=== PATIENT | male | born 1945 | race Caucasian/White ===

== ENCOUNTER → 2016-10-11 | Outpatient (CLI) | payer BC, MEDICARE ==
--- NOTE | 2016-10-11 10:04 | CTL ---
EXAMINATION TYPE: CT Low Dose Lung DATE OF EXAM ORDERED: 10/11/2016 9:43 AM COMPARISON: None HISTORY: 71-year-old male with lung cancer screening, personal history of tobacco use. CT DLP: 50.[address] CTDI: 1.4 mGy Automated exposure control for dose reduction was used. SCREENING VISIT: Baseline. COMPARISON: None TECHNIQUE: Low dose computed tomography scan was performed through the chest at 1 mm thick sections a nd reconstructed images in the coronal/sagittal plane at [address] DIAGNOSTIC QUALITY: Satisfactory FINDINGS: Heart is normal size without pericardial effusion. Coronary vessel calcifications are present and are a marker for coronary artery disease. There is ectasia of the ascending aorta at 3.7 cm with conventional arch vessel branching anatomy. Ec rosemary of the upper descending thoracic aorta at 3.2 cm. No thoracic lymphadenopathy by CT size criteria. There are calcified subcarinal and right hilar lymph nodes compatible with prior granulomatous disease. There is mild diffuse bronchial wall thickening and moderate overall centrilobular emphysema. Some strandy atelectasis or scarring is seen along the anterior midlung zone and right base. No suspicious pulmonary nodules are seen. Visualized upper abdomen shows a single calcified granuloma in the spleen but otherwise no gross abno rmality. Bones: Multilevel endplate spondylosis within the thoracic spine. No osseous destructive process. Sca ttered Schmorl's nodes are present. IMPRESSION: 1. LungRADS 1 - negative; no nodule seen. 2. COPD with moderate centrilobular emphysema. 3. Prior granulomatous disease. 4. Ectatic thoracic aorta (ascending aorta 3.7 cm). RECOMMENDATION: 1. Continue annual screening with low-dose CT in 12 months. 2. Smoking cessation.
== END | disposition home or self-care (01) ==
LOC: RADCTMAIN 09:15
PROVIDERS: ATTEND Family Medicine
DX: Z12.2 Encounter for screening for malignant neoplasm of respiratory organs (principal); J44.9 Chronic obstructive pulmonary disease, unspecified; I77.810 Thoracic aortic ectasia; Z87.891 Personal history of nicotine dependence

== ENCOUNTER → 2017-05-28 | Outpatient (CLI) | payer MEDICARE ==
[2017-05-28 09:24] LABS: ALT 33 U/L (21-72); AST 35 U/L (17-59); Cholesterol 262 mg/dL (<200); HDL Cholesterol 71 mg/dL (40-60)
== END | disposition home or self-care (01) ==
LOC: LABWHC1 08:53
PROVIDERS: ATTEND Internal Medicine Cardiovascular Disease
DX: E78.2 Mixed hyperlipidemia (principal)
CPT/HCPCS: 36415; 80061; 84450; 84460

== ENCOUNTER 2019-03-19 10:59 | Inpatient (IN) | payer MEDICARE ==
[2019-03-19] MEDS ORDERED: SODIUM CHLORIDE 0.9% 1,000 ML IV ONE (11:30)
[2019-03-19] MEDS ORDERED: MIDAZOLAM (PF) 2 MG/2 ML VIAL IV ONE ×2 (12:19→12:26)
[2019-03-19] MEDS ORDERED: LIDOCAINE 1% INJ 10MG/ML (20 ML MDV) SQ ONE (12:20)
[2019-03-19] MEDS: VERAPAMIL SYRINGE (5 MG/10 ML) INTRAARTER ONE ×2 (12:22→12:48)
[2019-03-19] MEDS ORDERED: BIVALIRUDIN BOLUS 250 MG/50 ML IV ONE (12:35)
[2019-03-19] MEDS ORDERED: BIVALIRUDIN 250 MG in SODIUM CHLORIDE 0.9% 50 ML IV ONE (12:36)
[2019-03-19] MEDS ORDERED: CLOPIDOGREL 75 MG TAB PO ONE (12:40)
[2019-03-19] MEDS ORDERED: NITROGLYCERIN 1000MCG/10ML SYRINGE INTRACORON ONE (12:44)
[2019-03-19] MEDS ORDERED: IOPAMIDOL-370 125ML BTL INJ ONE (12:45)
[2019-03-19] MEDS ORDERED: NITROGLYCERIN SL TABS 0.4 MG TAB SUBLINGUAL PRN (12:53)
[2019-03-19] MEDS ORDERED: ZOLPIDEM 5 MG TAB PO PRN (12:53)
[2019-03-19] MEDS ORDERED: RX INFO: IV CONTRAST WAS GIVEN 1 EACH MISC MISCELLANE PRN (12:53)
[2019-03-19] MEDS ORDERED: ATROPINE SULFATE 0.1 MG/ML 10ML SYRINGE IV PRN (12:53)
[2019-03-19] MEDS ORDERED: MAG HYDROX/AL HYDROX/SIMETH 30 ML CUP PO PRN (12:53)
[2019-03-19] MEDS ORDERED: SODIUM CHLORIDE 0.9% 1,000 ML IV SCH (13:00)
--- NOTE | 2019-03-19 15:33 | LTR ---
DATE OF SERVICE: March 19, 2019 RE: MitziDav shepard Dear Dr. Vaz; Mr. Dav Doyle presented to the emergency room at [facility] with chest discomfort and ischemic ST changes on the EKG. Because of that, I did advise a heart catheterization. He underwent heart catheterization which revealed critical disease involving the mid LAD where I did perform successful stenting of the mid LAD with good angiographic results and without any complication. Thank you for allowing us to participate in his care and please do not hesitate to call if you have any question or concern. Sincerely, Niko Cisneros MD MMTRISTENL / KATHIAN: [id number] /
--- NOTE | 2019-03-19 15:33 | CC ---
CARDIAC CATHETERIZATION REPORT DATE OF SERVICE: 03/19/2019 PERFORMING PHYSICIAN: Niko Cisneros MD Numerical Control Machine Machinist. PROCEDURE PERFORMED: 1. Selective right and left coronary angiogram. 2. Left heart catheterization. 3. Successful stenting of the mid LAD using 3.5 x 18 mm Xience SARITHA with an excellent angiographic result and reduction of stenosis from 99% to 0%. INDICATION: This is a pleasant 74-year-old gentleman with history of hypertension and dyslipidemia and prior history of smoking, who presented to the emergency room at [facility] with chest discomfort with ischemic ST changes. Because of that, a heart catheterization was advised. APPROACH: Right radial artery. COMPLICATION: None LEVEL OF SEDATION: Moderate with sedation length of 31 minutes. PROCEDURE DESCRIPTION: After obtaining an informed consent, the patient was brought to the cardiac laboratory cureman. The right radial artery was cannulated using micropuncture technique and a micropuncture wire passed easily, then I placed a 6-Italian sheath in the right radial artery. After that I gave the patient 2 mg of verapamil IA. I did selective right coronary angiogram using JR4 catheter and selective left coronary angiogram using an XP35 LAD guide. After that, I did intervene on the LAD, please see a separate paragraph for that. I did after that left heart catheterization using 6-Italian pigtail catheter. The procedure was completed without any complication. SELECTIVE CORONARY ANGIOGRAM: 1. The right coronary artery is chronically occluded in the midportion and fills by collaterals from the left coronary system. 2. Left main is angiographically normal, it bifurcates into left circumflex and left anterior descending artery. 3. The left circumflex is a large caliber vessel and is a nondominant vessel. The proximal circumflex appeared to have mild disease only. It gives rise into a large OM branch which has mild disease in the proximal portion, but the rest of the OM branch appeared to be angiographically normal. As a matter of fact, the OM 1 gives upper branch, which seems to be normal as well. The circumflex continued after that as a small-caliber vessel in the AV groove. 4. The LAD, the proximal LAD appeared to have mild disease only. The mid LAD appeared to have a lesion in the range of 99.9%, seems to be a hazy with possible thrombus formation. This is by the bifurcation of a medium-sized diagonal branch which seems to be normal. The LAD distally appeared to be angiographically normal. HEMODYNAMICS: The left ventricular end-diastolic pressure was about 12 mmHg without significant gradient across the aortic valve. PCI OF THE LAD: Anticoagulation was initiated using Angiomax. Subsequently I did engage. I did use the same XB3.5 LAD guide. I wired the LAD using a run-through wire. I did balloon angioplasty using 3.5 x 12 mm balloon before I deployed 3.5 x 18 mm Xience SARITHA where the stent was positioned under fluoroscopy guidance and deployed under its nominal pressure with the following angiogram showing good angiographic results with reduction of stenosis from 99% to 0%. CONCLUSION: 1. Chest discomfort associated with ischemic ST changes, concerning for severe underlying coronary artery disease. 2. Chronic total occlusion of the right coronary artery which fills by collaterals from the left coronary system. 3. Critical disease involving the mid left anterior descending artery with a plaque rupture and thrombus formation. 4. Successful stenting of the mid left anterior descending artery using 3.5 x 18 mm Xience SARITHA with an excellent angiographic result and reduction of stenosis from 99% to 0%. POSTPROCEDURE MANAGEMENT: 1. Dual anti-platelet therapy. 2. Risk factors modifications. 3. Follow up with the patient. MMODL / IJN: [id number] /
[2019-03-19] MEDS: ATORVASTATIN 80 MG TAB PO SCH (21:50)
[2019-03-19] MEDS: METOPROLOL TARTRATE 25 MG TAB PO SCH (21:50)
[2019-03-20 07:33] LABS: Basophils % (A) 1 %; Eosinophils # (A) 0.1 k/uL (0-0.7); Eosinophils % (A) 2 %; HCT 46.5 % (39.0-53.0); HGB 14.7 gm/dL (13.0-17.5); Lymphocytes % (A) 34 %; MCH 28.4 pg (25.0-35.0); MCHC 31.6 g/dL (31.0-37.0); MCV 89.9 fL (80.0-100.0); Mean Platelet Volume 7.8; Monocytes # (A) 0.4 k/uL (0-1.0); Monocytes % (A) 8 %; Neutrophils # (A) 3.2 k/uL (1.3-7.7); Neutrophils % (A) 54 %; Platelet Count 250 k/uL (150-450); RBC 5.17 m/uL (4.30-5.90); RDW 13.3 % (11.5-15.5); WBC 5.8 k/uL (3.8-10.6)
[2019-03-20 07:38] LABS: African American GFR (CKD) >90 (>60 ml/min/1.73 sqM); Anion Gap 7 mmol/L; Blood Urea Nitrogen 15 mg/dL (9-20); Carbon Dioxide 23 mmol/L (22-30); Chloride 108 mmol/L (98-107); Glucose 98 mg/dL (74-99); Potassium 4.7 mmol/L (3.5-5.1); Sodium 138 mmol/L (137-145)
[2019-03-20] MEDS: CLOPIDOGREL 75 MG TAB PO SCH (08:58)
[2019-03-20] MEDS: ASPIRIN 325 MG TAB PO SCH (08:58)
[2019-03-20] MEDS: LISINOPRIL 2.5 MG TAB PO SCH (08:58)
[2019-03-20] MEDS: METOPROLOL TARTRATE 25 MG TAB PO SCH ×2 (08:58→20:23)
[2019-03-20 11:57] VITALS: BMI 26.0
--- NOTE | 2019-03-20 12:34 | XR ---
EXAMINATION TYPE: XR chest 1V DATE OF EXAM: 03/20/2019 COMPARISON: NONE HISTORY: Congestive heart failure TECHNIQUE: Single frontal view of the chest is obtained. FINDINGS: There is no focal air space opacity, pleural effusion, or pneumothorax seen. The cardiac silhouette size is within normal limits. The osseous structures are intact. IMPRESSION: No acute cardiopulmonary process. No current sequela of congestive heart failure radiogr aphically.
--- NOTE | 2019-03-20 15:40 | P.HPIM ---
History of Present Illness 74-year-old present gentleman presented to the care and ER with compensative chest pain typical chest pain along with highly elevated troponin and the inverted T waves consistent with non-ST elevation microinfarction patient underwent cardiac catheterization here underwent successful stenting of LAD patient is feeling. No overnight events, patient was started on dual antiplatelet therapy statin and a beta ar. Echocardiogram is pending Review of Systems REVIEW OF SYSTEMS: CONSTITUTIONAL: No fever, no malaise, no fatigue. HEENT: No recent visual problems or hearing problems. Denied any sore throat. CARDIOVASCULAR: No chest pain, orthopnea, PND, no palpitations, no syncope. PULMONARY: No shortness of breath, no cough, no hemoptysis. GASTROINTESTINAL: No diarrhea, no nausea, no vomiting, no abdominal pain. NEUROLOGICAL: No headaches, no weakness, no numbness. HEMATOLOGICAL: Denies any bleeding or petechiae. GENITOURINARY: Denies any burning micturition, frequency, or urgency. MUSCULOSKELETAL/RHEUMATOLOGICAL: Denies any joint pain, swelling, or any muscle pain. ENDOCRINE: Denies any polyuria or polydipsia. The rest of the 14-point review of systems is negative. Past Medical History Past Medical History: COPD History of Any Multi-Drug Resistant Organisms: None Reported Past Surgical History: No Surgical Hx Reported Past Anesthesia/Blood Transfusion Reactions: No Reported Reaction Past Psychological History: No Psychological Hx Reported Smoking Status: Former smoker Past Drug Use History: None Reported - Past Family History Mother Family Medical History: AICD/Pacemaker Father Family Medical History: AICD/Pacemaker Medications and Allergies Home Medications Medication Instructions Recorded Confirmed Type Aspirin 325 mg PO HS 03/19/19 03/19/19 History Atorvastatin [Lipitor] 40 mg PO HS 03/19/19 03/19/19 History Mometasone Furoate [Asmanex] 1 puff INHALATION RT-DAILY 03/19/19 03/19/19 History Tiotropium Br/Olodaterol HCl 1 puff INHALATION RT-BID 03/19/19 03/19/19 History [Stiolto Respimat Inhal [place]] Allergies Allergy/AdvReac Type Severity Reaction Status Date / Time No Known Allergies Allergy Verified 03/19/19 19:27 Physical Exam Vitals: Vital Signs Temp Pulse Pulse Resp BP Pulse Ox 03/20/19 08:00 97.3 F L 64 16 121/78 92 L 03/20/19 04:10 98.0 F 61 15 112/77 94 L 03/20/19 00:00 98.1 F 62 16 122/77 95 03/19/19 19:45 98.3 F 72 18 134/81 95 03/19/19 17:56 79 16 136/80 97 03/19/19 15:51 80 16 152/80 98 Intake and Output 03/20/19 03/20/19 03/20/19 06:59 14:59 22:59 Intake Total 600 Balance 600 Intake: Oral 600 Other: # Voids 2 2 Weight 84.8 kg 84.8 kg PHYSICAL EXAMINATION: GENERAL: The patient is alert and oriented x3, not in any acute distress. Well developed, well nourished. HEENT: Pupils are round and equally reacting to light. EOMI. No scleral icterus. No conjunctival pallor. Normocephalic, atraumatic. No pharyngeal erythema. No thyromegaly. CARDIOVASCULAR: S1 and S2 present. No murmurs, rubs, or gallops. PULMONARY: Chest is clear to auscultation, no wheezing or crackles. ABDOMEN: Soft, nontender, nondistended, normoactive bowel sounds. No palpable organomegaly. MUSCULOSKELETAL: No joint swelling or deformity. EXTREMITIES: No cyanosis, clubbing, or pedal edema. NEUROLOGICAL: Gross neurological examination did not reveal any focal deficits. SKIN: No rashes. Results CBC & Chem 7: 03/20/19 06:36 03/20/19 06:36 Labs: Abnormal Lab Results - Last 24 Hours (Table) 03/20/19 Range/Units 06:36 Chloride 108 H (98-107) mmol/L Thrombosis Risk Factor Assmnt - Choose All That Apply Any of the Below Risk Factors Present?: Yes Each Factor Represents 1 point: Obesity (BMI >25) Other Risk Factors: Yes Each Risk Factor Represents 2 Points: Age 61-74 years, Arthroscopic surgery Thrombosis Risk Factor Assessment Total Risk Factor Score: 5 Thrombosis Risk Factor Assessment Level: High Risk Assessment and Plan Plan: -Non-ST elevation myocardial infarction: Status post cardiac catheterization and stenting of mid LAD continue Dilantin antiplatelet therapy beta ar awaiting echocardiogram. Continue with statin -Hyperlipidemia -COPD without any significant exacerbation history of smoking which she quit one and half years ago DVT prophylaxis: Early ambulation
--- NOTE | 2019-03-20 17:06 | P.PN ---
Subjective Progress Note Date: 03/20/19 This is a 74-year-old gentleman who was admitted through emergency room of [facility] with symptoms of chest pain and non-ST elevation myocardial infarction. Patient had stent placement of the LAD by Dr. Tillman. Patient has been doing well. Denies any chest pain or shortness of breath. His blood work is stable. Lungs are clear. Heart is regular. Patient is going to have an echocardiogram. His puncture site in the distal seemed to be healing well Objective - Vital Signs Vital signs: Vital Signs Temp 97.3 F L 03/20/19 08:00 Pulse 57 L 03/20/19 12:00 Resp 16 03/20/19 12:00 BP 131/78 03/20/19 12:00 Pulse Ox 95 03/20/19 12:00 Intake & Output 03/19/19 03/20/19 03/20/19 18:59 06:59 18:59 Intake Total 930 600 Balance 930 600 Weight 85.729 kg 84.8 kg 84.8 kg Intake: IV 690 Sodium Chloride 0.9% 1, 440 000 ml @ 75 mls/hr IV . [id number] [facility] Rx#:[id number] Oral 240 600 Other: Voiding Method Toilet # Voids 1 2 2 - Exam GENERAL EXAM: Patient is alert and oriented and doesn't appear to be in any acute distress HEENT: Normocephalic. Normal reaction of pupils, equal size, normal range of extraocular motion. No erythema or exudates in the throat. NECK: No masses, no nuchal rigidity. CHEST: No chest wall deformity. LUNGS: Show diminished breath sounds both sides with some expiratory rhonchi HEART: S1 and S2 normal with no audible mumurs or gallops. Regular rhythm, femorals equal on both sides.. ABDOMEN: No hepatosplenomegaly, normal bowel sounds, no guarding or rigidity. SKIN: No rashes CENTRAL NERVOUS SYSTEM: No focal deficits. EXTREMITIES: No cyanosis, clubbing or edema. - Labs CBC & Chem 7: 03/20/19 06:36 03/20/19 06:36 Labs: Abnormal Lab Results - Last 24 Hours (Table) 03/20/19 Range/Units 06:36 Chloride 108 H (98-107) mmol/L Assessment and Plan (1) COPD (chronic obstructive pulmonary disease) Current Visit: Yes Status: Acute Code(s): J44.9 - CHRONIC OBSTRUCTIVE PULMONARY DISEASE, UNSPECIFIED SNOMED Code(s): 17681945 (2) NSTEMI (non-ST elevated myocardial infarction) Current Visit: Yes Status: Acute Code(s): I21.4 - NON-ST ELEVATION (NSTEMI) MYOCARDIAL INFARCTION SNOMED Code(s): 12795896 Plan: We will get an echocardiogram done. Increase activity. Possible discharge in a.m.
--- NOTE | 2019-03-20 18:20 | ECHOF ---
Referral Reason:nstemi MEASUREMENTS -------- HEIGHT: 180.3 cm WEIGHT: 88.5 kg BP: 130/69 RVIDd: 3.0 cm (< 3.3) IVSd: 1.4 cm (0.6 - 1.1) LVIDd: 3.5 cm (3.9 - 5.3) LVPWd: 1.6 cm (0.6 - 1.1) IVSs: 2.1 cm LVIDs: 2.0 cm LVPWs: 2.0 cm LAESV Index (A-L): 16.16 ml/m Ao Diam: 2.8 cm (2.0 - 3.7) AV Cusp: 1.3 cm (1.5 - 2.6) LA Diam: 3.3 cm (2.7 - 3.8) MV EXCURSION: 16.074 mm (> 18.000) MV EF SLOPE: 82 mm/s (70 - 150) EPSS: 0.6 cm MV E Mike: 0.67 m/s MV DecT: 183 ms MV A Mike: 0.94 m/s MV E/A Ratio: 0.72 RAP: 5.00 mmHg RVSP: 15.50 mmHg FINDINGS -------- Sinus rhythm. This was a technically difficult study with suboptimal parasternal views. COPD The left ventricular size is normal. There is moderate concentric left ventricular hypertrophy. O verall left ventricular systolic function is mildly impaired with, an EF between 45 - 50 %. Mid ant erior LV wall motion is hypokinetic. Apical anterior LV wall motion is hypokinetic. The right ventricle is normal in size. Normal LA size by volume 22+/-6 ml/m2. The right atrial size is normal. Interatrial and interventricular septum intact. The aortic valve is trileaflet, and appears structurally normal. No aortic stenosis or regurgitation. The mitral valve is normal. There is trace mitral regurgitation. Mild tricuspid regurgitation present. There is no evidence of pulmonary hypertension. The right v entricular systolic pressure, as measured by Doppler, is 15.50mmHg. There is no pulmonic regurgitation present. The aortic root size is normal. Normal inferior vena cava with normal inspiratory collapse consistent with estimated right atrial pre ssure of 5 mmHg. Echo free space represents a pericardial fat pad. CONCLUSIONS -------- 1. Sinus rhythm. 2. This was a technically difficult study with suboptimal parasternal views. 3. COPD 4. The left ventricular size is normal. 5. There is moderate concentric left ventricular hypertrophy. 6. Overall left ventricular systolic function is mildly impaired with, an EF between 45 - 50 %. 7. Mid anterior LV wall motion is hypokinetic. 8. Apical anterior LV wall motion is hypokinetic. 9. Normal LA size by volume 22+/-6 ml/m2. 10. The aortic valve is trileaflet, and appears structurally normal. No aortic stenosis or regurgitat ion. 11. There is trace mitral regurgitation. 12. Mild tricuspid regurgitation present. 13. There is no evidence of pulmonary hypertension. 14. There is no pulmonic regurgitation present. 15. Echo free space represents a pericardial fat pad. [employer]PORT OPERATIONS DUTY MANAGER: Vibha Holguin RDCS
[2019-03-20] MEDS: FORMOTEROL FUMARATE 20 MCG/2 ML NEBU INHALATION SCH (20:13)
[2019-03-20] MEDS: FLUTICASONE 110 MCG INHALER INHALATION SCH (20:13)
[2019-03-20] MEDS: IPRATROPIUM 0.5 MG/2.5 ML NEBU INHALATION SCH ×2 (20:13→20:22)
[2019-03-20] MEDS: ATORVASTATIN 80 MG TAB PO SCH (20:23)
[2019-03-20 23:11] VITALS: RESP 18
[2019-03-21 06:55] LABS: HCT 44.9 % (39.0-53.0); HGB 14.3 gm/dL (13.0-17.5); MCH 27.8 pg (25.0-35.0); MCHC 31.8 g/dL (31.0-37.0); MCV 87.5 fL (80.0-100.0); Mean Platelet Volume 8.5; Platelet Count 222 k/uL (150-450); RBC 5.13 m/uL (4.30-5.90); RDW 14.5 % (11.5-15.5); WBC 6.6 k/uL (3.8-10.6)
[2019-03-21] MEDS: FLUTICASONE 110 MCG INHALER INHALATION SCH (07:56)
[2019-03-21] MEDS: FORMOTEROL FUMARATE 20 MCG/2 ML NEBU INHALATION SCH (07:56)
[2019-03-21] MEDS: IPRATROPIUM 0.5 MG/2.5 ML NEBU INHALATION SCH ×4 (07:56→15:46)
[2019-03-21] MEDS: METOPROLOL TARTRATE 25 MG TAB PO SCH (09:11)
[2019-03-21] MEDS: ASPIRIN 325 MG TAB PO SCH (09:11)
[2019-03-21] MEDS: CLOPIDOGREL 75 MG TAB PO SCH (09:11)
[2019-03-21] MEDS: LISINOPRIL 2.5 MG TAB PO SCH (09:12)
[2019-03-21 13:02] VITALS: BP 110/67; PULSE 60; TEMP 99
--- NOTE | 2019-03-21 16:11 | P.DS ---
Providers Date of admission: 03/19/19 11:25 Attending physician: Niko Cisneros Consults: 03/19/19 12:53 Consult Physician Routine Consulting Provider: [facility] Consult Reason/Comments: Post Interventional patient Do you want consulting provider notified?: Already Contacted Placement Type Exists?: Yes 03/20/19 08:33 Consult Physician Routine Consulting Provider: Enmanuel Pierce Consult Reason/Comments: Medical management- pt transferred from [facility] for heart cath Do you want consulting provider notified?: Yes Primary care physician: Stated None Hospital Course: 74-year-old present gentleman presented to the care and ER with compensative chest pain typical chest pain along with highly elevated troponin and the inverted T waves consistent with non-ST elevation microinfarction patient underwent cardiac catheterization here underwent successful stenting of LAD patient is feeling. No overnight events, patient was started on dual antiplatelet therapy statin and a beta ar. Echocardiogram is pending 03/21/2019 Patient echocardiogram showed ejection fraction of 40 with 50% patient is not in heart failure exacerbation at this time patient will be discharged on lisinopril, beta ar Dual antiplatelet therapy and a statin. Patient will follow with PCP and cardiology as an outpatient PHYSICAL EXAMINATION: GENERAL: The patient is alert and oriented x3, not in any acute distress. Well developed, well nourished. HEENT: Pupils are round and equally reacting to light. EOMI. No scleral icterus. No conjunctival pallor. Normocephalic, atraumatic. No pharyngeal erythema. No thyromegaly. CARDIOVASCULAR: S1 and S2 present. No murmurs, rubs, or gallops. PULMONARY: Chest is clear to auscultation, no wheezing or crackles. ABDOMEN: Soft, nontender, nondistended, normoactive bowel sounds. No palpable organomegaly. MUSCULOSKELETAL: No joint swelling or deformity. EXTREMITIES: No cyanosis, clubbing, or pedal edema. NEUROLOGICAL: Gross neurological examination did not reveal any focal deficits. SKIN: No rashes. Please refer to my dictation of H&P for further details of hospitalization course and other medical problems that were addressed here. Plan - Discharge Summary New Discharge Prescriptions: New Atorvastatin [Lipitor] 80 mg PO HS #30 tab Metoprolol Tartrate [Lopressor] 12.5 mg PO BID #60 tab Clopidogrel [Plavix] 75 mg PO DAILY #30 tab Lisinopril [Zestril] 2.5 mg PO DAILY #30 tab Continue Tiotropium Br/Olodaterol HCl [Stiolto Respimat Inhal [place]] 1 puff INHALATION RT-BID Mometasone Furoate [Asmanex] 1 puff INHALATION RT-DAILY Aspirin 325 mg PO HS Discontinued Atorvastatin [Lipitor] 40 mg PO HS Discharge Medication List Aspirin 325 mg PO HS 03/19/19 [History] Mometasone Furoate [Asmanex] 1 puff INHALATION RT-DAILY 03/19/19 [History] Tiotropium Br/Olodaterol HCl [Stiolto Respimat Inhal [place]] 1 puff INHALATION RT-BID 03/19/19 [History] Atorvastatin [Lipitor] 80 mg PO HS #30 tab 03/21/19 [Rx] Clopidogrel [Plavix] 75 mg PO DAILY #30 tab 03/21/19 [Rx] Lisinopril [Zestril] 2.5 mg PO DAILY #30 tab 03/21/19 [Rx] Metoprolol Tartrate [Lopressor] 12.5 mg PO BID #60 tab 03/21/19 [Rx] Follow up Appointment(s)/Referral(s): Hardy Vaz MD [STAFF PHYSICIAN] - 1 Week (Call Saturday to set up appointment) Erlin Foote MD [STAFF PHYSICIAN] - 03/27/19 3:30 pm Patient Instructions/Handouts: Heart Attack (DC), Left Heart Catheterization (DC), Heart Healthy Diet (DC), Coronary Intravascular Stent Placement (DC) Discharge Disposition: HOME SELF-CARE
== END 2019-03-21 15:58 | disposition home or self-care (01) | DRG 247 ==
LOC: 3SCARD 11:25
PROVIDERS: ADMIT Internal Medicine Interventional Cardiology; ATTEND Internal Medicine Interventional Cardiology
PROC: B2111ZZ Fluoroscopy of Multiple Coronary Arteries using Low Osmolar Contrast (ICD-10-PCS; 2019-03-19)
PROC: 027034Z Dilation of Coronary Artery, One Artery with Drug-eluting Intraluminal Device, Percutaneous Approach (ICD-10-PCS; principal; 2019-03-19 11:30)
PROC: 4A023N7 Measurement of Cardiac Sampling and Pressure, Left Heart, Percutaneous Approach (ICD-10-PCS; 2019-03-19 11:30)
DX: I21.4 Non-ST elevation (NSTEMI) myocardial infarction (principal); J44.9 Chronic obstructive pulmonary disease, unspecified; I25.10 Atherosclerotic heart disease of native coronary artery without angina pectoris; I10 Essential (primary) hypertension; E78.5 Hyperlipidemia, unspecified; Z79.82 Long term (current) use of aspirin; Z79.899 Other long term (current) drug therapy; Z87.891 Personal history of nicotine dependence; Z82.49 Family history of ischemic heart disease and other diseases of the circulatory system
CPT/HCPCS: 71045; 80048; 85025; 85027; 93306; 93458; 94640; C1874